=== PATIENT | female | born 1935 | race Caucasian/White ===

== ENCOUNTER 2017-04-28 15:13 | Emergency (ER) | payer MEDICARE, OTHER ==
[~2017-04-28 15:13] MED LIST: LEVO100T12 PO
[2017-04-28] MEDS ORDERED: IPRATROPIUM/ALBUTEROL SULFATE 3 ML SOLUTION IH ONE (15:43)
[2017-04-28] MEDS ORDERED: ACETAMINOPHEN 325 MG TAB ONE (16:17)
[2017-04-28 16:24] LABS: RAPID GROUP A STREP NEGATIVE (NEGATIVE)
== END 2017-04-28 17:09 | disposition home or self-care (01) ==
LOC: EDH 15:13
DX: J09.X2 Influenza due to identified novel influenza A virus with other respiratory manifestations (principal); I10 Essential (primary) hypertension; E07.9 Disorder of thyroid, unspecified; Z88.1 Allergy status to other antibiotic agents
CPT/HCPCS: 71046; 87804; 87880; 94640

== ENCOUNTER 2018-05-30 20:04 | Emergency (ER) | payer OTHER ==
[2018-05-30 20:52] LABS: BASOPHILS % (AUTO) 0.9 % (0.0-5.0); EOSINOPHILS % (AUTO) 13.2 % (0.0-8.0); HEMATOCRIT 39.9 % (36-48); LYMPHOCYTES % (AUTO) 13.9 % (21.0-51.0); MEAN CORPUSCULAR HEMOGLOBIN 32.3 pg (27.0-33.0); MEAN CORPUSCULAR HGB CONC 34.3 g/dL (32.0-36.0); MEAN CORPUSCULAR VOLUME 94.2 fL (79-99); MONOCYTES % (AUTO) 11.3 % (3.0-13.0); NEUTROPHILS % (AUTO) 60.7 % (40.0-77.0); NUCLEATED RED BLOOD CELLS 0.1 % (0.0-0.19); PLATELET COUNT (AUTO) 188 K/uL (130-400); RED BLOOD CELL COUNT(AUTO) 4.23 MIL/uL (4.00-5.50); RED CELL DISTRIBUTION WIDTH 12.5 % (11.0-15.5); WHITE BLOOD COUNT (AUTO) 4.7 K/uL (4.8-10.8)
[2018-05-30 20:58] LABS: CREATININE 0.9 mg/dL (0.5-1.5); POTASSIUM 3.9 mmol/L (3.5-5.1)
[2018-05-30] MEDS ORDERED: ASPIRIN 325 MG TABLET ONE (20:58)
[2018-05-30 21:03] LABS: ALBUMIN 3.7 g/dL (3.5-5.0); BILIRUBIN,TOTAL 0.6 mg/dL (0.2-1.0); TOTAL PROTEIN, SERUM 7.1 g/dL (6.0-8.3)
[2018-05-30 21:19] LABS: B-TYPE NATRIURETIC PEPTIDE 79 pg/mL (0-100)
== END 2018-05-30 22:48 | disposition home or self-care (01) ==
LOC: EDH 20:04
DX: R07.89 Other chest pain (principal); I10 Essential (primary) hypertension; E07.9 Disorder of thyroid, unspecified; Z90.49 Acquired absence of other specified parts of digestive tract; Z90.710 Acquired absence of both cervix and uterus; Z87.891 Personal history of nicotine dependence; Z88.0 Allergy status to penicillin; Z88.2 Allergy status to sulfonamides; Z88.1 Allergy status to other antibiotic agents; Z88.8 Allergy status to other drugs, medicaments and biological substances; Z79.899 Other long term (current) drug therapy
CPT/HCPCS: 36415; 71045; 80053; 82550; 83880; 84484; 85025; 93005

== ENCOUNTER 2018-07-20 20:37 | Observation (INO) | payer OTHER ==
[~2018-07-20] VITALS: Ht 152.4 cm; Wt 78.6 kg
[2018-07-20] MEDS ORDERED: ASPIRIN 325 MG TABLET ONE (22:00)
[2018-07-20 22:06] LABS: BASOPHILS % (AUTO) 1.2 % (0.0-5.0); EOSINOPHILS % (AUTO) 5.8 % (0.0-8.0); HEMATOCRIT 40.8 % (36-48); LYMPHOCYTES % (AUTO) 18.2 % (21.0-51.0); MEAN CORPUSCULAR HEMOGLOBIN 32.7 pg (27.0-33.0); MEAN CORPUSCULAR VOLUME 93.4 fL (79-99); MONOCYTES % (AUTO) 14.2 % (3.0-13.0); NEUTROPHILS % (AUTO) 60.6 % (40.0-77.0); NUCLEATED RED BLOOD CELLS 0.1 % (0.0-0.19); PLATELET COUNT (AUTO) 209 K/uL (130-400); RED BLOOD CELL COUNT(AUTO) 4.37 MIL/uL (4.00-5.50); RED CELL DISTRIBUTION WIDTH 12.9 % (11.0-15.5); WHITE BLOOD COUNT (AUTO) 4.9 K/uL (4.8-10.8)
[2018-07-20 22:08] LABS: APPEARANCE,URINE Cloudy (CLEAR); BILIRUBIN,URINE Negative (NEGATIVE); COLOR,URINE Yellow (YELLOW); GLUCOSE, URINE (UA) Negative (NEGATIVE); KETONES,URINE Negative (NEGATIVE); LEUKOCYTE ESTERASE ,URINE Negative (NEGATIVE); NITRATE,URINE Negative (NEGATIVE); OCCULT BLOOD,URINE Negative (NEGATIVE); PROTEIN,URINE Negative (NEGATIVE); UROBILINOGEN,URINE 0.2 mg/dL (0.2-1.0)
[2018-07-20 22:17] LABS: CREATININE 0.7 mg/dL (0.5-1.5); POTASSIUM 4.8 mmol/L (3.5-5.1)
[2018-07-20 22:19] LABS: INR 0.99 (0.85-1.15); PROTHROMBIN TIME 10.4 SEC (9.6-11.6)
[2018-07-20 22:29] LABS: ALBUMIN 4.2 g/dL (3.5-5.0); BILIRUBIN,TOTAL 0.5 mg/dL (0.2-1.0); MAGNESIUM 3.5 mg/dL (1.80-2.40); THYROID STIMULATING HORMONE 2.55 uIU/mL (0.36-3.74); TOTAL PROTEIN, SERUM 7.6 g/dL (6.0-8.3)
[2018-07-20 22:39] LABS: BACTERIA,URINE Few /HPF (None Seen); MUCUS,URINE Rare LPF (None Seen); WBC,URINE None Seen /HPF (0-1)
[2018-07-20] MEDS ORDERED: DIAZEPAM 2 MG TAB ONE (23:52)
[2018-07-21] MEDS ORDERED: NITROGLYCERIN 1GM/1 INCH PACKET TD ONE (04:59)
[2018-07-21] MEDS ORDERED: NITROGLYCERIN 1GM/1 INCH PACKET TD SCH (06:00)
[2018-07-21 06:36] LABS: CREATINE KINASE, TOTAL 46 U/L (21-232); MYOGLOBIN 49 ng/mL (10-92); TROPONIN I < 0.04 ng/mL (0.00-0.06)
[2018-07-21] MEDS ORDERED: ASPIRIN 325MG EC TAB 325 MG TABLET.DR PO SCH (09:00)
[2018-07-21 09:25] VITALS: BP 159/77
[2018-07-21] MEDS: NITROGLYCERIN 1GM/1 INCH PACKET TD SCH ×2 (09:47→15:47)
[2018-07-21] MEDS ORDERED: ALPR0.5T8 PO (10:52)
[2018-07-21] MEDS ORDERED: NEBI10TA PO (10:52)
[2018-07-21] MEDS ORDERED: OMEP20TA25 PO (10:52)
[2018-07-21] MEDS ORDERED: ACETAMINOPHEN 325 MG TAB PO PRN (11:00)
[2018-07-21] MEDS: ACETAMINOPHEN 325 MG TAB PO PRN ×2 (11:39→18:44)
[2018-07-21 11:54] VITALS: BP 129/64
[2018-07-21 12:04] LABS: CREATINE KINASE, TOTAL 39 U/L (21-232); MYOGLOBIN 39 ng/mL (10-92); TROPONIN I < 0.04 ng/mL (0.00-0.06)
[2018-07-21 15:57] VITALS: BP 122/57
--- NOTE | 2018-07-21 15:59 | NUR ---
DCP CM met with pt discussed dc plans. Pt is independent prior to admission, lives at home alone, sister lives close by. Denies any equipments/services. Pt feels safe to go back home, still drives, sister able to assist with transportation and needs as necessary. DC plan to home once stable. CM to cont to follow up. Addendum: 07/21/18 at 1604 by ALYSON LAW LVN CM Amended: Links added.
--- NOTE | 2018-07-21 16:54 | NUR ---
MARZENA SUNSHINE (DR. MEJÍA) PRESENT FOR CONSULT DUE TO CHEST PAIN R/O WI. WILL PLACE ORDERS FOR LEXISCAN CARDIOLITE AND 2D ECHO.
[2018-07-21 18:55] LABS: CREATINE KINASE, TOTAL 37 U/L (21-232); MYOGLOBIN 37 ng/mL (10-92); TROPONIN I < 0.04 ng/mL (0.00-0.06)
[2018-07-21] MEDS ORDERED: NITROGLYCERIN 1GM/1 INCH PACKET TD PRN (19:15)
[2018-07-21 20:00] VITALS: BP 137/83
[2018-07-22] VITALS: BP 136/76
[2018-07-22 04:00] VITALS: BP 148/64
[2018-07-22] MEDS ORDERED: LEVOTHYROXINE 100 MCG TABLET PO SCH (07:30)
[2018-07-22 08:57] VITALS: BP 130/69
[2018-07-22] MEDS ORDERED: ASPIRIN 325MG EC TAB 325 MG TABLET.DR PO SCH (09:00)
[2018-07-22 11:27] VITALS: BP 140/74
[2018-07-22] MEDS ORDERED: NEBIVOLOL HCL 5 MG TABLET PO SCH (15:00)
--- NOTE | 2018-07-22 18:15 | NUR ---
DISCHARGE INSTRUCTIONS GIVEN, PATIENT VERBALIZED BY TEACH BACK. INSTRUCTED TO FOLLOW UP WITH DR. SOLITARIO. IV DISCONTINUED WITH INNER CANNULA INTACT.
--- NOTE | 2018-07-22 19:00 | NUR ---
NOTIFIED YOLY العلي OF D- DIMER RESULTS 550 . NO FURTHER ORDERS .
== END 2018-07-22 18:20 | disposition home or self-care (01) ==
LOC: EDH 20:37 → EDHIP 07-21 00:05 → 3CH 07-21 08:26
PROVIDERS: ADMIT Internal Medicine; ATTEND Internal Medicine
DX: R07.89 Other chest pain (principal); I10 Essential (primary) hypertension; Z90.49 Acquired absence of other specified parts of digestive tract; Z90.710 Acquired absence of both cervix and uterus; Z88.8 Allergy status to other drugs, medicaments and biological substances
CPT/HCPCS: 36415 ×3; 71045; 80053; 81001; 82550 ×4; 83690; 83735; 83874 ×3; 84443; 84484 ×4; 85025; 85378; 85610; 85730; 93005 ×4; 93970; 99284; G0378 ×42

== ENCOUNTER → 2018-08-21 | Outpatient (CLI) | payer OTHER ==
[~2018-08-21] MED LIST changes: +ALPR0.5T8 PO; +NEBI10TA PO; +OMEP20TA25 PO
== END | disposition home or self-care (01) ==
LOC: SHCH 13:21
PROVIDERS: ATTEND Internal Medicine Cardiovascular Disease
DX: I87.2 Venous insufficiency (chronic) (peripheral) (principal)
CPT/HCPCS: 93970

== ENCOUNTER 2020-07-20 16:44 | Inpatient (IN) | payer OTHER ==
[~2020-07-20] VITALS: Ht 152.4 cm; Wt 76.2 kg
[2020-07-20] MEDS ORDERED: MORPHINE 4 MG SYG ONE ×2 (17:25→20:58)
[2020-07-20] MEDS ORDERED: ONDANSETRON 4MG INJ ONE ×2 (17:25→22:00)
[2020-07-20] MEDS ORDERED: 0.9% NACL 500ML IV.SOLN 500 ML IV ONE (17:26)
[2020-07-20 17:43] LABS: BASOPHILS % (AUTO) 0.4 % (0.0-5.0); EOSINOPHILS % (AUTO) 4.9 % (0.0-8.0); HEMATOCRIT 41.8 % (36-48); LYMPHOCYTES % (AUTO) 8.2 % (21.0-51.0); MEAN CORPUSCULAR HEMOGLOBIN 32.1 pg (27.0-33.0); MEAN CORPUSCULAR HGB CONC 33.5 g/dL (32.0-36.0); MEAN CORPUSCULAR VOLUME 95.9 fL (79-99); MONOCYTES % (AUTO) 8.3 % (3.0-13.0); NEUTROPHILS % (AUTO) 77.4 % (40.0-77.0); PLATELET COUNT (AUTO) 222 K/uL (130-400); RED BLOOD CELL COUNT(AUTO) 4.36 MIL/uL (4.00-5.50); RED CELL DISTRIBUTION WIDTH 12.6 % (11.0-15.5); WHITE BLOOD COUNT (AUTO) 7.8 K/uL (4.8-10.8)
[2020-07-20 17:55] LABS: CREATININE 0.9 mg/dL (0.5-1.5); INR 1.05 (0.85-1.15); POTASSIUM 3.5 mmol/L (3.5-5.1); PROTHROMBIN TIME 11.4 SEC (9.6-11.6)
[2020-07-20 17:57] LABS: PARTIAL THROMBOPLASTIN TIME 25.8 SEC (26.3-35.5)
[2020-07-20 18:00] LABS: ALBUMIN 3.9 g/dL (3.5-5.0); BILIRUBIN,TOTAL 0.6 mg/dL (0.2-1.0); TOTAL PROTEIN, SERUM 7.7 g/dL (6.0-8.3)
[2020-07-21] MEDS ORDERED: ONDANSETRON 4MG INJ ONE (05:00)
[2020-07-21] MEDS ORDERED: MORPHINE 4 MG SYG ONE (05:00)
[2020-07-21] MEDS ORDERED: LEVO88CA4 PO (05:59)
[2020-07-21] MEDS ORDERED: FLUT16H NASAL (05:59)
[2020-07-21] MEDS ORDERED: LORA0.5T83 PO (05:59)
[2020-07-21 06:00] VITALS: BP 164/67
[2020-07-21] MEDS ORDERED: CYCL30DR OP (06:00)
[2020-07-21] MEDS ORDERED: DORZ10DR20 OS (06:00)
[2020-07-21] MEDS ORDERED: CARB10DR8 OU (06:00)
[2020-07-21] MEDS ORDERED: BRIM5DRO4 OS (06:00)
[2020-07-21] MEDS ORDERED: BRIN10DR OS (06:00)
[2020-07-21] MEDS ORDERED: ACETAMINOPHEN 325 MG TAB PO PRN (07:45)
[2020-07-21] MEDS ORDERED: ONDANSETRON 4MG INJ IVP PRN (07:45)
[2020-07-21] MEDS ORDERED: MORPHINE 2 MG SYG ONE (07:47)
[2020-07-21 08:39] VITALS: BP 156/73
[2020-07-21] MEDS: MORPHINE 2 MG SYG IVP PRN (12:39)
[2020-07-21 13:53] VITALS: BP 142/81
[2020-07-21 19:11] VITALS: BP 127/64
[2020-07-21 20:56] VITALS: BP 136/58
[2020-07-21] MEDS: LORAZEPAM 0.5 MG TABLET PO SCH (23:16)
[2020-07-22] VITALS (26 sets, daily range): BP systolic 97–210; BP diastolic 52–94
[2020-07-22] MEDS: LEVOTHYROXINE 88 MCG TABLET PO SCH (06:30)
[2020-07-22] MEDS ORDERED: NON-FORMULARY MEDICATION 1 EACH (Levothyroxine Sodium (Levothyroxine) 88 MCG) PO SCH (08:00)
[2020-07-22] MEDS: FLUTICASONE PROPIONATE 50MCG/SPRAY 16 GM BOTTLE NS SCH (08:47)
[2020-07-22] MEDS: BRIMONIDINE TARTRATE 0.2% 5 ML BOTTLE OS SCH (08:49)
[2020-07-22] MEDS: Cyclosporine (Restasis) 1 EACH OP SCH (08:49)
[2020-07-22] MEDS: GLYCERIN OU SCH (08:50)
[2020-07-22] MEDS: CARBOXYMETHYL OU SCH (08:50)
[2020-07-22] MEDS: TIMOLOL 0.5% OS SCH (08:50)
[2020-07-22] MEDS: DORZOLAMIDE 2% OS SCH (08:50)
[2020-07-22] MEDS: LORAZEPAM 0.5 MG TABLET PO SCH ×2 (08:50→20:30)
[2020-07-22] MEDS: POLY80 OU SCH (08:50)
[2020-07-22] MEDS: BRINZOLAMIDE 1% 10ML DROPS.SUSP OS SCH (08:50)
[2020-07-22] MEDS ORDERED: POLY80 OU SCH (09:00)
[2020-07-22] MEDS ORDERED: GLYCERIN OU SCH (09:00)
[2020-07-22] MEDS ORDERED: CARBOXYMETHYL OU SCH (09:00)
[2020-07-22] MEDS ORDERED: [UNRECOGNIZED DRUG - OTHER] OU SCH (09:00)
[2020-07-22] MEDS ORDERED: LIDOCAINE PF 100MG/5ML (2%) SYRINGE 5ML ONE (11:05)
[2020-07-22] MEDS ORDERED: MIDAZOLAM HCL 1 MG/ML 2ML VIAL ONE (11:06)
[2020-07-22] MEDS ORDERED: ROCURONIUM 10MG/1ML SYR 10 MG/ML ML ONE (11:06)
[2020-07-22] MEDS ORDERED: ONDANSETRON 4MG INJ ONE (11:06)
[2020-07-22] MEDS ORDERED: PROPOFOL 10 MG/ML 20ML VIAL IV ONE (11:06)
[2020-07-22] MEDS ORDERED: LIDOCAINE 1%-EPI 1:100,000 20 ML VIAL IJ ONE (11:17)
[2020-07-22] MEDS ORDERED: ROPIVACAINE 0.5% 5MG/ML 30ML IJ ONE (11:18)
[2020-07-22] MEDS ORDERED: DEXAMETHASONE SOD PHOSPHATE 10MG/ML 1ML VIAL ONE (11:59)
[2020-07-22] MEDS ORDERED: CALCIUM CARB 500MG PO PRN (12:15)
[2020-07-22] MEDS ORDERED: POTASSIUM CHLORIDE 10% ELIXIR 20 MEQ/15 ML UDCUP PO PRN (12:15)
[2020-07-22] MEDS ORDERED: DIPHENHYDRAMINE HCL 25 MG CAPSULE PO PRN (12:15)
[2020-07-22] MEDS ORDERED: FERROUS FUMARATE 324 MG TABLET PO PRN (12:15)
[2020-07-22] MEDS ORDERED: POTASSIUM CHLORIDE 20MEQ/100ML 100 ML IV PRN (12:15)
[2020-07-22] MEDS: ACETAMINOPHEN 500 MG TABLET PO SCH ×2 (12:15→20:32)
[2020-07-22] MEDS ORDERED: DiphenhydrAMINE HCL 50 MG/ML VIAL IVP PRN (12:15)
[2020-07-22] MEDS: 0.9%NACL 1000ML 1,000 ML IV SCH ×3 (12:15→22:15)
[2020-07-22] MEDS ORDERED: CLINDAMYCIN IVPB 600MG/50ML 50 ML IV ONE (12:29)
[2020-07-22] MEDS ORDERED: NEOSTIGMINE 5MG/5ML SYR IV ONE (13:42)
[2020-07-22] MEDS ORDERED: GLYCOPYRROLATE 1 MG/5 ML SYRINGE ONE (13:42)
[2020-07-22] MEDS ORDERED: MEPERIDINE-PF 25 MG/ML SYG ONE ×2 (13:46→14:39)
[2020-07-22] MEDS ORDERED: NON-FORMULARY MEDICATION 1 EACH (Omeprazole 20 MG) PO SCH (14:00)
[2020-07-22] MEDS: PANTOPRAZOLE 40 MG TAB DR PO SCH (14:00)
[2020-07-22] MEDS ORDERED: HYDRALAZINE 20MG/ML VIAL ONE (14:38)
[2020-07-22] MEDS ORDERED: SUGAMMADEX SODIUM 200 MG/2 ML VIAL IV ONE (14:56)
[2020-07-22] MEDS ORDERED: CLINDAMYCIN IVPB 900MG/50ML 50 ML IVPB SCH (17:15)
[2020-07-22] MEDS: CLINDAMYCIN IVPB 900MG/50ML 50 ML IVPB SCH (20:18)
[2020-07-22] MEDS: CELECOXIB 200 MG CAP PO SCH (20:30)
[2020-07-23] MEDS: HYDROCODONE/ACETAMINOPHEN 5/325 MG TAB PO PRN (02:37)
[2020-07-23 04:03] VITALS: BP 132/54
[2020-07-23] MEDS: CLINDAMYCIN IVPB 900MG/50ML 50 ML IVPB SCH (05:04)
[2020-07-23] MEDS: ACETAMINOPHEN 500 MG TABLET PO SCH ×3 (06:16→19:41)
[2020-07-23] MEDS: LEVOTHYROXINE 88 MCG TABLET PO SCH (06:18)
[2020-07-23] MEDS: 0.9%NACL 1000ML 1,000 ML IV SCH (08:15)
[2020-07-23] MEDS: Cyclosporine (Restasis) 1 EACH OP SCH (08:20)
[2020-07-23] MEDS: BRIMONIDINE TARTRATE 0.2% 5 ML BOTTLE OS SCH (08:20)
[2020-07-23] MEDS: BRINZOLAMIDE 1% 10ML DROPS.SUSP OS SCH (08:21)
[2020-07-23] MEDS: POLY80 OU SCH (08:21)
[2020-07-23] MEDS: GLYCERIN OU SCH (08:21)
[2020-07-23] MEDS: CELECOXIB 200 MG CAP PO SCH ×2 (08:21→19:41)
[2020-07-23] MEDS: DORZOLAMIDE 2% OS SCH (08:21)
[2020-07-23] MEDS: CARBOXYMETHYL OU SCH (08:21)
[2020-07-23] MEDS: LORAZEPAM 0.5 MG TABLET PO SCH ×2 (08:21→19:41)
[2020-07-23] MEDS: TIMOLOL 0.5% OS SCH (08:21)
[2020-07-23] MEDS: POLYETHYLENE GLYCOL 3350 17 GM POWD.PACK PO SCH (08:21)
[2020-07-23] MEDS: FLUTICASONE PROPIONATE 50MCG/SPRAY 16 GM BOTTLE NS SCH (08:23)
[2020-07-23 09:34] VITALS: BP 118/42
[2020-07-23] MEDS: MORPHINE 2 MG SYG IVP PRN (10:00)
[2020-07-23 11:00] VITALS: BP 116/51
[2020-07-23] MEDS: PSYLLIUM SEED 1 EACH PACKET PO SCH (12:00)
[2020-07-23 14:52] LABS: BASOPHILS % (AUTO) 0.2 % (0.0-5.0); EOSINOPHILS % (AUTO) 3.4 % (0.0-8.0); HEMATOCRIT 27.7 % (36-48); LYMPHOCYTES % (AUTO) 6.8 % (21.0-51.0); MEAN CORPUSCULAR HEMOGLOBIN 33.3 pg (27.0-33.0); MEAN CORPUSCULAR HGB CONC 34.3 g/dL (32.0-36.0); MEAN CORPUSCULAR VOLUME 97.2 fL (79-99); PLATELET COUNT (AUTO) 162 K/uL (130-400); RED BLOOD CELL COUNT(AUTO) 2.85 MIL/uL (4.00-5.50); RED CELL DISTRIBUTION WIDTH 12.9 % (11.0-15.5); WHITE BLOOD COUNT (AUTO) 8.2 K/uL (4.8-10.8)
[2020-07-23 15:01] LABS: POTASSIUM 4.2 mmol/L (3.5-5.1)
[2020-07-23 15:30] VITALS: BP 105/42
[2020-07-23] MEDS: PANTOPRAZOLE 40 MG TAB DR PO SCH (15:52)
[2020-07-23] MEDS ORDERED: FAMOTIDINE 20MG TAB ONE (19:03)
[2020-07-23] MEDS: FAMOTIDINE 20MG TAB PO SCH (19:41)
[2020-07-23 20:16] VITALS: BP 112/44
[2020-07-23 23:20] VITALS: BP 124/60
[2020-07-24] MEDS: ACETAMINOPHEN 500 MG TABLET PO SCH ×3 (04:15→20:31)
[2020-07-24 04:27] VITALS: BP 148/55
[2020-07-24] MEDS: LEVOTHYROXINE 88 MCG TABLET PO SCH (05:25)
[2020-07-24] MEDS: HYDROCODONE/ACETAMINOPHEN 5/325 MG TAB PO PRN ×2 (05:25→20:31)
[2020-07-24 08:10] VITALS: BP 142/70
[2020-07-24] MEDS: POLY80 OU SCH (09:00)
[2020-07-24] MEDS: Cyclosporine (Restasis) 1 EACH OP SCH (09:00)
[2020-07-24] MEDS: TIMOLOL 0.5% OS SCH (09:00)
[2020-07-24] MEDS: DORZOLAMIDE 2% OS SCH (09:00)
[2020-07-24] MEDS: CARBOXYMETHYL OU SCH (09:00)
[2020-07-24] MEDS: GLYCERIN OU SCH (09:00)
[2020-07-24] MEDS: PANTOPRAZOLE 40 MG TAB DR PO SCH (09:26)
[2020-07-24] MEDS: LORAZEPAM 0.5 MG TABLET PO SCH ×2 (09:26→20:29)
[2020-07-24] MEDS: POLYETHYLENE GLYCOL 3350 17 GM POWD.PACK PO SCH (09:26)
[2020-07-24] MEDS: CELECOXIB 200 MG CAP PO SCH ×2 (09:26→20:28)
[2020-07-24] MEDS: BRINZOLAMIDE 1% 10ML DROPS.SUSP OS SCH (09:27)
[2020-07-24] MEDS: BRIMONIDINE TARTRATE 0.2% 5 ML BOTTLE OS SCH (09:27)
[2020-07-24] MEDS: ENOXAPARIN SODIUM 30 MG/0.3 ML SQ SCH (09:49)
[2020-07-24] MEDS: FLUTICASONE PROPIONATE 50MCG/SPRAY 16 GM BOTTLE NS SCH (09:50)
[2020-07-24] MEDS: PSYLLIUM SEED 1 EACH PACKET PO SCH (10:18)
[2020-07-24 11:00] VITALS: BP 132/62
[2020-07-24] MEDS ORDERED: BISACODYL 5 MG TABLET.DR PO PRN (12:15)
[2020-07-24 16:46] VITALS: BP 129/66
[2020-07-24 20:00] VITALS: BP 121/50
[2020-07-24] MEDS: FAMOTIDINE 20MG TAB PO SCH (20:28)
[2020-07-24 23:37] VITALS: BP 141/52
[2020-07-25 03:40] VITALS: BP 134/60
[2020-07-25 05:07] LABS: BASOPHILS % (AUTO) 0.4 % (0.0-5.0); EOSINOPHILS % (AUTO) 6.1 % (0.0-8.0); LYMPHOCYTES % (AUTO) 10.4 % (21.0-51.0); MEAN CORPUSCULAR HEMOGLOBIN 32.9 pg (27.0-33.0); MEAN CORPUSCULAR HGB CONC 34.3 g/dL (32.0-36.0); MEAN CORPUSCULAR VOLUME 95.9 fL (79-99); MONOCYTES % (AUTO) 10.8 % (3.0-13.0); NEUTROPHILS % (AUTO) 71.9 % (40.0-77.0); PLATELET COUNT (AUTO) 207 K/uL (130-400); RED BLOOD CELL COUNT(AUTO) 2.92 MIL/uL (4.00-5.50); RED CELL DISTRIBUTION WIDTH 12.7 % (11.0-15.5); WHITE BLOOD COUNT (AUTO) 4.9 K/uL (4.8-10.8)
[2020-07-25 05:19] LABS: CREATININE 0.8 mg/dL (0.5-1.5)
[2020-07-25] MEDS: ACETAMINOPHEN 500 MG TABLET PO SCH ×3 (05:43→20:17)
[2020-07-25] MEDS: LEVOTHYROXINE 88 MCG TABLET PO SCH (05:43)
[2020-07-25] MEDS: KCL 20 MEQ ERTAB PO PRN ×4 (05:46→22:19)
[2020-07-25 08:00] VITALS: BP 144/57
[2020-07-25] MEDS: FLUTICASONE PROPIONATE 50MCG/SPRAY 16 GM BOTTLE NS SCH (09:00)
[2020-07-25] MEDS: BRINZOLAMIDE 1% 10ML DROPS.SUSP OS SCH (09:00)
[2020-07-25] MEDS: DORZOLAMIDE 2% OS SCH (09:00)
[2020-07-25] MEDS: POLYETHYLENE GLYCOL 3350 17 GM POWD.PACK PO SCH (09:00)
[2020-07-25] MEDS: POLY80 OU SCH (09:00)
[2020-07-25] MEDS: TIMOLOL 0.5% OS SCH (09:00)
[2020-07-25] MEDS: BRIMONIDINE TARTRATE 0.2% 5 ML BOTTLE OS SCH (09:00)
[2020-07-25] MEDS: Cyclosporine (Restasis) 1 EACH OP SCH (09:00)
[2020-07-25] MEDS: CARBOXYMETHYL OU SCH (09:00)
[2020-07-25] MEDS: GLYCERIN OU SCH (09:00)
[2020-07-25] MEDS: ENOXAPARIN SODIUM 30 MG/0.3 ML SQ SCH (09:08)
[2020-07-25] MEDS: HYDROCODONE/ACETAMINOPHEN 5/325 MG TAB PO PRN ×2 (09:13→22:09)
[2020-07-25 12:00] VITALS: BP 112/45
[2020-07-25] MEDS: PSYLLIUM SEED 1 EACH PACKET PO SCH (12:00)
[2020-07-25] MEDS ORDERED: BISACODYL 10 MG SUPP.RECT RC PRN (12:15)
[2020-07-25 16:43] VITALS: BP 131/70
[2020-07-25] MEDS: PANTOPRAZOLE 40 MG TAB DR PO SCH (17:28)
[2020-07-25 19:50] VITALS: BP 141/58
[2020-07-25] MEDS: FAMOTIDINE 20MG TAB PO SCH (20:17)
[2020-07-25] MEDS: LORAZEPAM 0.5 MG TABLET PO PRN (22:08)
[2020-07-26] VITALS (7 sets, daily range): BP systolic 133–149; BP diastolic 54–72
[2020-07-26] MEDS: LEVOTHYROXINE 88 MCG TABLET PO SCH (04:33)
[2020-07-26] MEDS: ACETAMINOPHEN 500 MG TABLET PO SCH ×3 (04:34→19:42)
[2020-07-26] MEDS: HYDROCODONE/ACETAMINOPHEN 5/325 MG TAB PO PRN ×4 (04:35→23:42)
[2020-07-26] MEDS: BRIMONIDINE TARTRATE 0.2% 5 ML BOTTLE OS SCH (07:35)
[2020-07-26] MEDS: Cyclosporine (Restasis) 1 EACH OP SCH (07:35)
[2020-07-26] MEDS: POLY80 OU SCH (07:37)
[2020-07-26] MEDS: GLYCERIN OU SCH (07:37)
[2020-07-26] MEDS: BRINZOLAMIDE 1% 10ML DROPS.SUSP OS SCH (07:37)
[2020-07-26] MEDS: TIMOLOL 0.5% OS SCH (07:37)
[2020-07-26] MEDS: CARBOXYMETHYL OU SCH (07:37)
[2020-07-26] MEDS: DORZOLAMIDE 2% OS SCH (07:37)
[2020-07-26] MEDS: FLUTICASONE PROPIONATE 50MCG/SPRAY 16 GM BOTTLE NS SCH (09:00)
[2020-07-26] MEDS: POLYETHYLENE GLYCOL 3350 17 GM POWD.PACK PO SCH (09:00)
[2020-07-26] MEDS: ENOXAPARIN SODIUM 30 MG/0.3 ML SQ SCH (10:49)
[2020-07-26] MEDS: PSYLLIUM SEED 1 EACH PACKET PO SCH (12:00)
[2020-07-26] MEDS: PANTOPRAZOLE 40 MG TAB DR PO SCH (15:54)
[2020-07-26] MEDS ORDERED: PHARMACY COMMUNICATION MISC SCH ×2 (16:30→19:45)
[2020-07-26] MEDS: FAMOTIDINE 20MG TAB PO SCH (19:41)
[2020-07-26] MEDS: LORAZEPAM 0.5 MG TABLET PO PRN (23:41)
[2020-07-27] MEDS: ACETAMINOPHEN 500 MG TABLET PO SCH ×2 (03:50→12:53)
[2020-07-27 04:20] VITALS: BP_SYST 120; BP_SYST 149; BP_DIAS 45; BP_DIAS 68
[2020-07-27] MEDS: LEVOTHYROXINE 88 MCG TABLET PO SCH (05:24)
[2020-07-27] MEDS: GLYCERIN OU SCH (08:06)
[2020-07-27] MEDS: POLY80 OU SCH (08:06)
[2020-07-27] MEDS: Cyclosporine (Restasis) 1 EACH OP SCH (08:06)
[2020-07-27] MEDS: CARBOXYMETHYL OU SCH (08:06)
[2020-07-27] MEDS: BRIMONIDINE TARTRATE 0.2% 5 ML BOTTLE OS SCH (08:06)
[2020-07-27] MEDS: BRINZOLAMIDE 1% 10ML DROPS.SUSP OS SCH (08:06)
[2020-07-27 08:07] VITALS: BP 156/78
[2020-07-27] MEDS: TIMOLOL 0.5% OS SCH (08:07)
[2020-07-27] MEDS: DORZOLAMIDE 2% OS SCH (08:07)
[2020-07-27] MEDS: ENOXAPARIN SODIUM 30 MG/0.3 ML SQ SCH (08:54)
[2020-07-27] MEDS: POLYETHYLENE GLYCOL 3350 17 GM POWD.PACK PO SCH (08:58)
[2020-07-27] MEDS: FLUTICASONE PROPIONATE 50MCG/SPRAY 16 GM BOTTLE NS SCH (08:58)
[2020-07-27] MEDS: PSYLLIUM SEED 1 EACH PACKET PO SCH (08:58)
[2020-07-27] MEDS ORDERED: METOPROLOL TARTRATE 50 MG TAB PO SCH (09:00)
[2020-07-27] MEDS: HYDROCODONE/ACETAMINOPHEN 5/325 MG TAB PO PRN (09:30)
[2020-07-27 12:00] VITALS: BP 144/74
[2020-07-27] MEDS: PANTOPRAZOLE 40 MG TAB DR PO SCH (12:56)
[2020-07-27 16:00] VITALS: BP 155/71
== END 2020-07-27 18:13 | DRG 483 ==
LOC: EDH 16:44 → EDHIP 23:00 → 4AH 07-21 05:11
PROVIDERS: ADMIT Internal Medicine; ATTEND Internal Medicine
PROC: 0RRK00Z Replacement of Left Shoulder Joint with Reverse Ball and Socket Synthetic Substitute, Open Approach (ICD-10-PCS; principal; 2020-07-22 11:40)
PROC: 3E0T3BZ Introduction of Anesthetic Agent into Peripheral Nerves and Plexi, Percutaneous Approach (ICD-10-PCS; 2020-07-22 11:40)
PROC: 3E0T33Z Introduction of Anti-inflammatory into Peripheral Nerves and Plexi, Percutaneous Approach (ICD-10-PCS; 2020-07-22 11:40)
DX: S42.242A 4-part fracture of surgical neck of left humerus, initial encounter for closed fracture (principal); I12.9 Hypertensive chronic kidney disease with stage 1 through stage 4 chronic kidney disease, or unspecified chronic kidney disease; D64.9 Anemia, unspecified; F41.9 Anxiety disorder, unspecified; E78.5 Hyperlipidemia, unspecified; E03.9 Hypothyroidism, unspecified; N18.2 Chronic kidney disease, stage 2 (mild); I73.9 Peripheral vascular disease, unspecified; F03.90 Unspecified dementia, unspecified severity, without behavioral disturbance, psychotic disturbance, mood disturbance, and anxiety; K58.9 Irritable bowel syndrome, unspecified; E87.6 Hypokalemia; W01.0XXA Fall on same level from slipping, tripping and stumbling without subsequent striking against object, initial encounter; Y93.89 Activity, other specified; Y92.89 Other specified places as the place of occurrence of the external cause; Y99.8 Other external cause status; Z87.891 Personal history of nicotine dependence; Z90.710 Acquired absence of both cervix and uterus; Z90.49 Acquired absence of other specified parts of digestive tract; Z88.0 Allergy status to penicillin; Z88.2 Allergy status to sulfonamides; Z88.8 Allergy status to other drugs, medicaments and biological substances
CPT/HCPCS: 36415; 71045; 73030; 73200; 80048; 80053; 84132; 84484; 85025; 85610; 85730; 88304; 88311; 93005; 97039; A4565; C1776; G0378; J0360; J1100; J1650; J2001; J2175; J2250; J2270; J2405; J2704; J2710; J2795; J3490; J7030; J7040